=== PATIENT | female | born 1995 | race Caucasian/White ===

== ENCOUNTER 2019-04-29 11:20 | Day surgery (SDC) | payer OTHER ==
[2019-04-29] MEDS ORDERED: GLYCOPYRROLATE 0.4 MG INJ ×2 (12:38→13:43)
[2019-04-29] MEDS ORDERED: LIDOCAINE 2% (SDV) 5 ML INJ (12:38)
[2019-04-29] MEDS ORDERED: MEPERIDINE 100 MG INJ (12:39)
[2019-04-29] MEDS ORDERED: NEOSTIGMINE 3 MG/3 ML SYRINGE (12:39)
[2019-04-29] MEDS ORDERED: ROCURONIUM 50 MG INJ (12:39)
[2019-04-29] MEDS ORDERED: SUCCINYLCHOLINE CHLORIDE 100 MG/5 ML SYG IV (12:39)
[2019-04-29] MEDS ORDERED: PROPOFOL 20 ML (12:39)
[2019-04-29] MEDS: POLYMYXIN/BACITRACIN 1L IRRIG IRR (13:36)
[2019-04-29] MEDS ORDERED: METOCLOPRAMIDE 10 MG INJ (13:43)
[2019-04-29] MEDS ORDERED: ONDANSETRON 4 MG INJ (13:43)
[2019-04-29] MEDS ORDERED: CEFAZOLIN 1 GM INJ (13:45)
[2019-04-29] MEDS ORDERED: DIPHENHYDRAMINE 50 MG INJ IV (14:00)
[2019-04-29] MEDS: BUPIVACAINE 0.5%/EPI (SDV) 30 ML INJ (14:00)
[2019-04-29] MEDS ORDERED: FENTAnyl 50 MCG/ML VIAL IV ×3 (14:00)
[2019-04-29] MEDS ORDERED: HYDROmorphONE 1 MG/5 ML IV SYRINGE IV (14:00)
[2019-04-29] MEDS ORDERED: METOCLOPRAMIDE 10 MG INJ IV (14:00)
[2019-04-29] MEDS ORDERED: MIDAZOLAM 1 MG/ML 2 ML INJ IV (14:00)
[2019-04-29] MEDS ORDERED: OXYCODONE/ACETAMINOPHEN (5/325) TAB PO ×2 (14:00)
[2019-04-29] MEDS: MEPERIDINE 25 MG INJ IV (14:18)
[2019-04-29] MEDS: HYDROmorphONE 1 MG/5 ML IV SYRINGE IV ×2 (14:23→14:31)
[2019-04-29] MEDS ORDERED: ONDANSETRON 4 MG INJ IV (14:30)
[2019-04-29] MEDS ORDERED: HYDROCODONE/APAP (5/325) TAB PO (14:30)
[2019-04-29] MEDS ORDERED: morphine 10 MG INJ IV (14:30)
[2019-04-29] MEDS ORDERED: KETOROLAC 30 MG INJ IM (14:30)
[2019-04-29] MEDS: KETOROLAC 30 MG INJ IV (14:39)
[2019-04-29] MEDS: ONDANSETRON 4 MG INJ IV (14:39)
[2019-04-29] MEDS: HYDROCODONE/APAP (5/325) TAB PO (14:42)
== END 2019-04-29 16:39 | disposition home or self-care (01) ==
LOC: SUR 11:20 → SDS 11:20 → SUR 16:39
DX: S42.002D Fracture of unspecified part of left clavicle, subsequent encounter for fracture with routine healing (principal); V86.59XD Driver of other special all-terrain or other off-road motor vehicle injured in nontraffic accident, subsequent encounter
CPT/HCPCS: 23515; 73000